=== PATIENT | female | born 1935 | race Caucasian/White ===

== ENCOUNTER 2016-06-01 13:18 | Emergency (ER) | payer MEDICARE ==
--- NOTE | 2016-06-01 14:01 | ER Document Report ---
ED Medical Screen (RME) - General Chief Complaint: Leg Swelling Stated Complaint: LEG PAIN TRAVEL OUTSIDE OF THE [place] IN LAST 30 DAYS: No - HPI Notes: 06/01/16 14:00 Bilateral lower extremity pitting edema worse than normal patient states has been evaluated for blood clots in the past no history of blood clots. Now has erythema bilateral legs no fevers no chills - Related Data Allergies/Adverse Reactions: No Known Allergies Allergy (Verified 06/01/16 13:44) Past Medical History - Past Medical History Cardiac Medical History: Reports: Hx Hypercholesterolemia, Hx Hypertension - on meds Denies: Hx Coronary Artery Disease, Hx Heart Attack Pulmonary Medical History: Reports: Hx Tuberculosis Denies: Hx Asthma, Hx Bronchitis, Hx COPD, Hx Pneumonia Neurological Medical History: Denies: Hx Cerebrovascular Accident, Hx Seizures Endocrine Medical History: Reports: Hx Hypothyroidism Renal/ Medical History: Denies: Hx Peritoneal Dialysis Malignancy Medical History: Reports: Hx Breast Cancer Musculoskeltal Medical History: Reports Hx Arthritis Psychiatric Medical History: Reports: Hx Anxiety, Hx Dementia - Suspected based on the visit today, she has not been officially diagnosed. Past Surgical History: Reports: Hx Mastectomy - left, Hx Orthopedic Surgery - left knee, L arm - Immunizations Immunizations up to date: Yes Hx Diphtheria, Pertussis, Tetanus Vaccination: Yes Review of Systems - Review of Systems Constitutional: Other - Peripheral edema Physical Exam - Vital signs Vitals: Temp Pulse Resp BP Pulse Ox 97.8 F 54 L 20 130/50 H 98 06/01/16 13:46 06/01/16 13:46 06/01/16 13:46 06/01/16 13:46 06/01/16 13:46 - General General appearance: Appears well In distress: None - Respiratory Respiratory status: No respiratory distress Chest status: Nontender Course - Vital Signs Vital signs: Temp Pulse Resp BP Pulse Ox 97.8 F 54 L 20 130/50 H 98 06/01/16 13:46 06/01/16 13:46 06/01/16 13:46 06/01/16 13:46 06/01/16 13:46
[2016-06-01 14:20] LABS: ABSOLUTE EOSINOPHILS # (AUTO) 0.1 10^3/uL (0.0-0.6); ABSOLUTE LYMPHOCYTES (AUTO) 1.9 10^3/uL (0.5-4.7); ABSOLUTE MONOCYTES (AUTO) 0.6 10^3/uL (0.1-1.4); ABSOLUTE NEUT (AUTO) 4.7 10^3/uL (1.7-8.2); BASOPHILS % (AUTO) 0.2 % (0-2); EOSINOPHILS % (AUTO) 1.5 % (0-6); HEMATOCRIT 34.5 % (36.0-47.0); HEMOGLOBIN 11.4 g/dL (12.0-15.5); HGB HCT DIFFERENCE -0.3; LYMPHOCYTES % (AUTO) 25.9 % (13-45); MEAN CORPUSCULAR HEMOGLOBIN 30.4 pg (27.0-33.4); MEAN CORPUSCULAR HGB CONC 33.2 g/dL (32.0-36.0); MEAN CORPUSCULAR VOLUME 92 fl (80-97); MONOCYTES % (AUTO) 8.1 % (3-13); RED BLOOD COUNT 3.75 10^6/uL (3.72-5.28); RED CELL DISTRIBUTION WIDTH 14.3 % (11.5-14.0); SEGMENTED NEUTROPHILS % (AUTO) 64.3 % (42-78); WHITE BLOOD COUNT 7.3 10^3/uL (4.0-10.5)
--- NOTE | 2016-06-01 14:30 | ER Document Report ---
ED General - General Chief Complaint: Leg Swelling Stated Complaint: LEG PAIN Time seen by provider: 14:28 Mode of Arrival: Ambulatory Information source: Patient Notes: This is an 81-year-old female with a history of hypertension, sleep edema, arthritis, hypothyroidism and restless leg syndrome. The patient presents to the emergency room with bilateral lower extremity edema for the past week. Patient denies any chest pain, shortness of breath, dyspnea on exertion. The patient does have a history of blunt trauma to the left knee and states that normally she does have a little asymmetry in the size of her lower extremities. TRAVEL OUTSIDE OF THE [place] IN LAST 30 DAYS: No - HPI Onset: Last week Onset/Duration: Gradual Quality of pain: No pain Severity: None Pain Level: Denies Associated symptoms: denies: Chills, Fever Exacerbated by: Denies Relieved by: Denies Similar symptoms previously: Yes Recently seen / treated by doctor: No - Related Data Allergies/Adverse Reactions: No Known Allergies Allergy (Verified 06/01/16 13:44) Past Medical History - General Information source: Patient - Social History Smoking Status: Never Smoker Cigarette use (# per day): No Chew tobacco use (# tins/day): No Frequency of alcohol use: None Drug Abuse: None Lives with: Alone Family History: Reviewed & Not Pertinent Patient has suicidal ideation: No Patient has homicidal ideation: No - Past Medical History Cardiac Medical History: Reports: Hx Hypercholesterolemia, Hx Hypertension - on meds Denies: Hx Coronary Artery Disease, Hx Heart Attack Pulmonary Medical History: Reports: Hx Tuberculosis Denies: Hx Asthma, Hx Bronchitis, Hx COPD, Hx Pneumonia Neurological Medical History: Denies: Hx Cerebrovascular Accident, Hx Seizures Endocrine Medical History: Reports: Hx Hypothyroidism Renal/ Medical History: Denies: Hx Peritoneal Dialysis Malignancy Medical History: Reports: Hx Breast Cancer Musculoskeltal Medical History: Reports Hx Arthritis Psychiatric Medical History: Reports: Hx Anxiety, Hx Dementia - Suspected based on the visit today, she has not been officially diagnosed. Past Surgical History: Reports: Hx Mastectomy - left, Hx Orthopedic Surgery - left knee, L arm - Immunizations Immunizations up to date: Yes Hx Diphtheria, Pertussis, Tetanus Vaccination: Yes Review of Systems - Review of Systems Notes: Review of systems: Constitutional: Denies fever, chills. EENT: Denies ear pain, sinus tenderness, throat pain, throat swelling. Cardiovascular: Positive for lower extremity edema. Denies chest pain, palpitations, dyspnea. Respiratory: Denies wheezing, cough, hemoptysis. Abdomen: Denies abdominal pain, nausea, vomiting, diarrhea. Denies BRBPR or melena. Genitourinary: Denies dysuria, pyuria, hematuria, flank pain. Musculoskeletal: Patient does have chronic low back pain. She does have arthritis and has a recent injection to the right knee joint. Neurologic: Denies headache, photophobia, neck stiffness, weakness. Denies loss of bowel or bladder function. Denies saddle anesthesia. Skin: Denies rash, lesions. Physical Exam - Vital signs Vitals: Temp Pulse Resp BP Pulse Ox 97.8 F 54 L 20 130/50 H 98 06/01/16 13:46 06/01/16 13:46 06/01/16 13:46 06/01/16 13:46 06/01/16 13:46 Notes: Physical exam: GENERAL: 81-year-old female, alert and oriented 3, no acute distress. HEAD: Atraumatic, normocephalic. EYES: Pupils equal round and reactive to light, extraocular movements intact, sclera anicteric, conjunctiva are normal. ENT: TMs normal, nares patent, oropharynx clear without exudates. Moist mucous membranes. NECK: Normal range of motion, supple without lymphadenopathy or JVD. LUNGS: Breath sounds clear to auscultation bilaterally and equal. No wheezes rales or rhonchi. HEART: Regular rate and rhythm without murmurs, rubs or gallops. ABDOMEN: Soft, normoactive bowel sounds. No tenderness to palpation. No guarding, no rebound. No masses appreciated. EXTREMITIES: Normal range of motion. She does have 2+ lower extremity edema bilaterally. 2+ dorsal pedal pulses. No clubbing or cyanosis. NEUROLOGICAL: Cranial nerves II through XII grossly intact. Normal speech, normal gait. PSYCH: Normal mood, normal affect. SKIN: Warm, Dry, normal turgor, no rashes or lesions noted. Course - Re-evaluation Re-evalutation: 06/01/16 17:17 I have a long discussion with the patient regarding her symptoms and have advised her to raise her feet up at night. I've advised her to use compression stockings, but she is hesitant to use these. I did discuss her heart rate which is a bit on the low side (51). Review of an old EKG showed that it was still in the 50s (57) but if anything I think she is a little on the dry side and the beta josh may be building in her system. I've advised her to hold the beta josh for 2 days but she is pretty adamant that she is not can hold this medicine. She is on this for a long time because of tachycardia in the past. I've given her a copy of today's labs and reports so that she can bring them to her primary care physician on Friday. Currently, she is very comfortable and in no distress at all. - Vital Signs Vital signs: Temp Pulse Resp BP Pulse Ox 97.8 F 88 18 123/55 L 97 06/01/16 16:38 06/01/16 16:38 06/01/16 16:38 06/01/16 16:38 06/01/16 16:38 - Laboratory Result Diagrams: 06/01/16 14:05 06/01/16 14:05 Laboratory results interpreted by me: 06/01/16 06/01/16 06/01/16 14:05 14:05 14:05 Hgb 11.4 L Hct 34.5 L RDW 14.3 H Sodium 146.4 H Potassium 3.4 L Carbon Dioxide 31 H BUN 28 H Est GFR (Non-Af Amer) 54 L NT-Pro-B Natriuret Pep 495 H - Diagnostic Test Radiology reviewed: Image reviewed, Reports reviewed - Lower extremity Dopplers show no DVT. Chest x-ray showed no infiltrates. - EKG Interpretation by Me Rate: Bradycardia - EKG shows sinus bradycardia with a ventricular rate of 51, no acute ST-T wave changes. Previous EKG September 26, 2014 shows a sinus bradycardia with a ventricular rate of 57. Discharge - Discharge Clinical Impression: Pedal edema Clinical Impression: (Ruled Out): no edema Condition: Stable Disposition: HOME, SELF-CARE Instructions: Edema, Peripheral ([facility]) Additional Instructions: Recommendations: A lower extremity Doppler exam was performed and showed no blood clot in the lower extremities. Your chest x-ray looked good. Continue current medicines. See the instruction sheet on peripheral edema. Note that your heart rate was on the low side (51) and that the medicine you are taking (Nadolol) we will slow the heart rate. This medicine boards out too much in your system, it and slow to much and you will becomes symptomatic. I do recommend you hold this medicine for 2 days. I would be seen by her primary care physician (Dr. Rico) on Friday. I would like you to bring a copy of today's test results with you when you go to that appointment. Return to the ER for any chest pain, shortness of breath or any concerns he getting worse. Referrals: HERMINIO BENAVIDES PA-C [Primary Care Provider] - Follow up as needed HARLEY RICO MD [ACTIVE STAFF] - Follow up as needed
[2016-06-01 14:37] LABS: ANION GAP 13 (5-19); BLOOD UREA NITROGEN 28 mg/dL (7-20); CALCIUM 9.4 mg/dL (8.4-10.2); CARBON DIOXIDE 31 mmol/L (22-30); CHLORIDE 102 mmol/L (98-107); CREATININE RESULT 0.99 mg/dL (0.52-1.25); GLUCOSE 102 mg/dL (75-110); POTASSIUM 3.4 mmol/L (3.6-5.0); SODIUM 146.4 mmol/L (137-145)
[2016-06-01] MEDS ORDERED: POTASSIUM CHLORIDE 20 MEQ/15 ML UDCUP PO ONE (15:11)
[2016-06-01 15:17] LABS: THYROID STIMULATING HORMONE 2.41 uIU/mL (0.47-4.68)
[2016-06-01 18:02] VITALS: BP 128/52
--- NOTE | 2016-06-01 20:46 | EKG REPORT ---
SEVERITY:- BORDERLINE ECG - SINUS RHYTHM BORDERLINE T ABNORMALITIES, ANT-LAT LEADS : Confirmed by: Jerel Marvin 01-Jun-2016 20:46:18
== END 2016-06-01 17:30 | disposition home or self-care (01) ==
LOC: ER 13:18
DX: R60.0 Localized edema (principal); M79.89 Other specified soft tissue disorders; M79.604 Pain in right leg; M79.605 Pain in left leg; I10 Essential (primary) hypertension; E03.9 Hypothyroidism, unspecified
CPT/HCPCS: 93005; 99284; 36415; 84439; 84443; 85025; 80048; 83880; 93970; 71020; 93010; A9270

== ENCOUNTER 2016-06-18 11:46 | Emergency (ER) | payer MEDICARE ==
--- NOTE | 2016-06-18 12:53 | ER Document Report ---
ED Medical Screen (RME) - General Chief Complaint: Productive Cough Stated Complaint: COUGH Mode of Arrival: Ambulatory Information source: Patient Notes: 81-year-old female no previous smoking history asthma history presents with complaints of shortness of breath wheezing over the past 3 weeks with productive white sputum Patient denies any fevers admits decreased appetite I have greeted and performed a rapid initial assessment of this patient. A comprehensive ED assessment and evaluation of the patient, analysis of test results and completion of the medical decision making process will be conducted by additional ED providers. PHYSICAL EXAMINATION: GENERAL: Extremely well-appearing for her age. HEAD: Atraumatic, normocephalic. EYES: Pupils equal round and reactive to light, extraocular movements intact, conjunctiva are normal. ENT: Nares patent, oropharynx clear without exudates. Moist mucous membranes. NECK: Normal range of motion, supple without lymphadenopathy LUNGS: Breath sounds clear to auscultation bilaterally and equal. No wheezes rales or rhonchi. Coughing HEART: Regular rate and rhythm without murmurs ABDOMEN: Soft, nontender, nondistended abdomen. No guarding, no rebound. No masses appreciated. Female : deferred Musculoskeletal: Normal range of motion, no pitting or edema. No cyanosis. NEUROLOGICAL: Cranial nerves grossly intact. Normal speech, normal gait. Normal sensory, motor exams PSYCH: Normal mood, normal affect. SKIN: Warm, Dry, normal turgor, no rashes or lesions noted. TRAVEL OUTSIDE OF THE [place] IN LAST 30 DAYS: No - Related Data Allergies/Adverse Reactions: No Known Allergies Allergy (Verified 06/18/16 12:38) Past Medical History - Past Medical History Cardiac Medical History: Reports: Hx Hypercholesterolemia, Hx Hypertension - on meds Denies: Hx Coronary Artery Disease, Hx Heart Attack Pulmonary Medical History: Reports: Hx Tuberculosis Denies: Hx Asthma, Hx Bronchitis, Hx COPD, Hx Pneumonia Neurological Medical History: Denies: Hx Cerebrovascular Accident, Hx Seizures Endocrine Medical History: Reports: Hx Hypothyroidism Renal/ Medical History: Denies: Hx Peritoneal Dialysis Malignancy Medical History: Reports: Hx Breast Cancer Musculoskeltal Medical History: Reports Hx Arthritis Psychiatric Medical History: Reports: Hx Anxiety, Hx Dementia - Suspected based on the visit today, she has not been officially diagnosed. Past Surgical History: Reports: Hx Mastectomy - left, Hx Orthopedic Surgery - left knee, L arm - Immunizations Immunizations up to date: Yes Hx Diphtheria, Pertussis, Tetanus Vaccination: Yes Physical Exam - Vital signs Vitals: Temp Pulse Resp BP Pulse Ox 97.3 F 50 L 20 167/61 H 96 06/18/16 11:51 06/18/16 11:51 06/18/16 11:51 06/18/16 11:51 06/18/16 11:51 Course - Vital Signs Vital signs: Temp Pulse Resp BP Pulse Ox 97.3 F 50 L 20 167/61 H 96 06/18/16 11:51 06/18/16 11:51 06/18/16 11:51 06/18/16 11:51 06/18/16 11:51
[2016-06-18 13:27] LABS: ABSOLUTE EOSINOPHILS # (AUTO) 0.1 10^3/uL (0.0-0.6); ABSOLUTE LYMPHOCYTES (AUTO) 1.7 10^3/uL (0.5-4.7); ABSOLUTE MONOCYTES (AUTO) 0.6 10^3/uL (0.1-1.4); ABSOLUTE NEUT (AUTO) 4.4 10^3/uL (1.7-8.2); BASOPHILS % (AUTO) 0.2 % (0-2); EOSINOPHILS % (AUTO) 1.6 % (0-6); HEMATOCRIT 31.3 % (36.0-47.0); HEMOGLOBIN 10.7 g/dL (12.0-15.5); HGB HCT DIFFERENCE 0.8; LYMPHOCYTES % (AUTO) 25.3 % (13-45); MEAN CORPUSCULAR HGB CONC 34.2 g/dL (32.0-36.0); MEAN CORPUSCULAR VOLUME 91 fl (80-97); RED BLOOD COUNT 3.46 10^6/uL (3.72-5.28); RED CELL DISTRIBUTION WIDTH 13.8 % (11.5-14.0); SEGMENTED NEUTROPHILS % (AUTO) 63.9 % (42-78); WHITE BLOOD COUNT 6.9 10^3/uL (4.0-10.5)
[2016-06-18 13:37] LABS: VENOUS BLOOD BASE EXCESS 4.6 mmol/L; VENOUS BLOOD HCO3 30.8 mmol/L (20-32); VENOUS BLOOD PCO2 53.2 mmHg (35-63); VENOUS BLOOD PH 7.38 (7.30-7.42)
[2016-06-18 13:39] LABS: PROTHROMBIN TIME 12.7 SEC (11.4-15.4)
--- NOTE | 2016-06-18 13:45 | ER Document Report ---
ED General - General Chief Complaint: Productive Cough Stated Complaint: COUGH Mode of Arrival: Ambulatory Information source: Patient Notes: Patient presents to the emergency department with complaints of a productive cough for the past 3 weeks. She reports she is spitting up some clear product. She also reports she's been wheezing. Denies history of asthma COPD. Denies other symptoms such as fever vomiting diarrhea. Denies cp. Patient reports she just hasn't felt good for a few weeks. Reports history of breast cancer, high blood pressure arthritis high cholesterol anxiety and chronic UTI. TRAVEL OUTSIDE OF THE [place] IN LAST 30 DAYS: No - HPI Onset: Other - 3 weeks Onset/Duration: Persistent Quality of pain: No pain Severity: None Pain Level: Denies Associated symptoms: Productive cough Exacerbated by: Denies Relieved by: Denies Similar symptoms previously: No Recently seen / treated by doctor: No - Related Data Allergies/Adverse Reactions: No Known Allergies Allergy (Verified 06/18/16 12:38) Past Medical History - General Information source: Patient - Social History Smoking Status: Never Smoker Cigarette use (# per day): No Frequency of alcohol use: None Drug Abuse: None Lives with: Alone Family History: Reviewed & Not Pertinent Patient has suicidal ideation: No Patient has homicidal ideation: No - Past Medical History Cardiac Medical History: Reports: Hx Hypercholesterolemia, Hx Hypertension - on meds Denies: Hx Coronary Artery Disease, Hx Heart Attack Pulmonary Medical History: Reports: Hx Tuberculosis Denies: Hx Asthma, Hx Bronchitis, Hx COPD, Hx Pneumonia Neurological Medical History: Denies: Hx Cerebrovascular Accident, Hx Seizures Endocrine Medical History: Reports: Hx Hypothyroidism Renal/ Medical History: Denies: Hx Peritoneal Dialysis Malignancy Medical History: Reports: Hx Breast Cancer Musculoskeltal Medical History: Reports Hx Arthritis Psychiatric Medical History: Reports: Hx Anxiety, Hx Dementia - Suspected based on the visit today, she has not been officially diagnosed. Past Surgical History: Reports: Hx Mastectomy - left, Hx Orthopedic Surgery - left knee, L arm - Immunizations Immunizations up to date: Yes Hx Diphtheria, Pertussis, Tetanus Vaccination: Yes Review of Systems - Review of Systems Notes: Review HPI for review of systems., All other systems negative Physical Exam - Vital signs Vitals: Temp Pulse Resp BP Pulse Ox 97.3 F 50 L 20 167/61 H 96 06/18/16 11:51 06/18/16 11:51 06/18/16 11:51 06/18/16 11:51 06/18/16 11:51 - Notes Notes: PHYSICAL EXAMINATION: GENERAL: Well-appearing and in no acute distress nontoxic looking HEAD: Atraumatic, normocephalic. EYES: Pupils equal round and reactive to light, extraocular movements intact, sclera anicteric, conjunctiva are normal. ENT: TM WNL, nares patent, oropharynx clear without exudates. Moist mucous membranes. NECK: Normal range of motion, supple without lymphadenopathy LUNGS: CTAB and equal. No wheezes rales or rhonchi. frequent cough noted, RR even/unlabored HEART: regular rate and rhythm ABDOMEN: Soft, no tenderness. No guarding, no rebound BACK: Kyphosis, denies back pain EXTREMITIES: Normal range of motion, no pitting edema. No cyanosis. NEUROLOGICAL: Cranial nerves grossly intact. Normal sensory/motor PSYCH: Normal mood, normal affect. SKIN: Warm, Dry, normal turgor, no rashes or lesions noted Course - Re-evaluation Re-evalutation: 06/18/16 16:05 Labs unremarkable chest x-ray negative UA positive nitrite Patient updated on UTI positive nitrite. Patient instructed on Septra. Patient reports she has chronic UTIs is not sure why. She was instructed on the importance of follow- up with her primary care provider. Patient reports her primary care provider has now switched to Dr. Pearson. I instructed her again to make sure she follows up in one week for recheck. She verbalized understanding. - Vital Signs Vital signs: Temp Pulse Resp BP Pulse Ox 97.3 F 50 L 18 160/65 H 98 06/18/16 11:51 06/18/16 11:51 06/18/16 16:01 06/18/16 16:01 06/18/16 16:01 - Laboratory Result Diagrams: 06/18/16 12:55 06/18/16 12:55 Laboratory results interpreted by me: 06/18/16 06/18/16 12:55 14:52 RBC 3.46 L Hgb 10.7 L Hct 31.3 L Urine Protein 30 H Urine Nitrite POSITIVE H Ur Leukocyte Esterase LARGE H - Diagnostic Test Radiology reviewed: Image reviewed, Reports reviewed - Diagnostic report text EXAM DESCRIPTION: CHEST PA/LAT COMPLETED DATE/TIME: 06/18/2016 1:24 pm REASON FOR STUDY: productive cough sob COMPARISON: 06/01/2016 EXAM PARAMETERS : NUMBER OF VIEWS: two views TECHNIQUE: Digital Frontal and Lateral radiographic views of the chest acquired. RADIATION DOSE: NA LIMITATIONS: none FINDINGS: LUNGS AND PLEURA: The lungs are mildly hyperexpanded. There are no infiltrates or effusions. MEDIASTINUM AND HILAR STRUCTURES: No masses or adenopathy suggested. HEART AND VASCULAR STRUCTURES: Cardiomegaly. No evidence of failure. BONES: No acute findings. HARDWARE: Surgical clips in the left axilla. OTHER: No other significant finding. TECHNICAL DOCUMENTATION : JOB ID: [id number] [employer]- All Rights Reserved RAD/CHEST PA/LAT IMPRESSION: Cardiomegaly with chronic lung changes and no evidence of CHF - EKG Interpretation by Me EKG shows normal: Sinus rhythm When compared to previous EKG there are: No significant change Discharge - Discharge Clinical Impression: Cough, Urinary tract infection Condition: Stable Disposition: HOME, SELF-CARE Instructions: Urinary Tract Infection ([facility]), Trimethoprim-Sulfa ([facility]) Additional Instructions: *You have been evaluated for a cough, UTI, Elevated blood pressure reading *Take medication as prescribed *Increase fluids *Monitor your temperature, take Tylenol as indicated *Follow up with a primary care provider within one week for a recheck *Return to ED for increasing fever, cough, worsening condition, changes, needs Monitor your blood pressure. Your blood pressure was elevated today. This may be because you were anxious, in pain or because you need medication. It is important to follow up with your primary care provider for full evaluation. Prescriptions: Sulfamethoxazole/Trimethoprim [Bactrim Ds Tablet] 1 each PO BID #20 tablet Forms: Elevated Blood Pressure Referrals: DOMINIC SILVERMAN MD [ACTIVE STAFF] - Follow up in 1 week
[2016-06-18 13:46] LABS: ALANINE AMINOTRANSFERASE 26 U/L (9-52); ALBUMIN 4.3 g/dL (3.5-5.0); ALKALINE PHOSPHATASE 112 U/L (38-126); ANION GAP 13 (5-19); ASPARTATE AMINO TRANSFERASE 18 U/L (14-36); BILIRUBIN,DIRECT 0.3 mg/dL (0.0-0.4); BILIRUBIN,TOTAL 0.7 mg/dL (0.2-1.3); BLOOD UREA NITROGEN 19 mg/dL (7-20); CALCIUM 9.7 mg/dL (8.4-10.2); CARBON DIOXIDE 29 mmol/L (22-30); CHLORIDE 102 mmol/L (98-107); GLUCOSE 101 mg/dL (75-110); POTASSIUM 3.9 mmol/L (3.6-5.0); SODIUM 144.2 mmol/L (137-145); TOTAL PROTEIN 7.5 g/dL (6.3-8.2)
[2016-06-18 15:19] LABS: APPEARANCE,URINE CLOUDY; BILIRUBIN,URINE NEGATIVE (NEGATIVE); GLUCOSE, URINE NEGATIVE (NEGATIVE); KETONES,URINE NEGATIVE (NEGATIVE); LEUKOCYTE ESTERASE,URINE LARGE (NEGATIVE); NITRITE,URINE POSITIVE (NEGATIVE); PROTEIN,URINE 30 mg/dL (NEGATIVE); URINE SPECIFIC GRAVITY 1.009; UROBILINOGEN,URINE NEGATIVE mg/dL (<2.0)
[2016-06-18 16:41] VITALS: BP 160/65
--- NOTE | 2016-06-18 22:20 | EKG REPORT ---
SEVERITY:- NORMAL ECG - SINUS RHYTHM : Confirmed by: Jreel Marvin 18-Jun-2016 22:20:43
== END 2016-06-18 16:53 | disposition home or self-care (01) ==
LOC: ER 11:46
DX: R05 Cough (principal); N39.0 Urinary tract infection, site not specified; R06.2 Wheezing; I10 Essential (primary) hypertension; Z85.3 Personal history of malignant neoplasm of breast; Z86.11 Personal history of tuberculosis
CPT/HCPCS: 36415; 71020; 80053; 81001; 82803; 83605; 85025; 85610; 87040; 87086; 87088; 87186; 93005; 93010; 99284

== ENCOUNTER 2016-10-26 14:25 | Emergency (ER) | payer MEDICARE ==
[2016-10-26 14:33] VITALS: BP 198/57
--- NOTE | 2016-10-26 15:33 | ER Document Report ---
ED General - General Chief Complaint: Medication Refill Stated Complaint: MEDICATION REFILL Time Seen by Provider: 10/26/16 14:48 Mode of Arrival: Ambulatory Information source: Patient Notes: Patient is an 81-year-old female who presents for medication refill on her Valium 10 mg. She states she has been seeing Dr. Lowe for the past 2-3 years he has been refilling her medications without problem. She states she went to the pharmacy to picker tender helper her refill and was told that this physician no longer has a DEJAN number that is active and they would be unable to give her another refill left on this medication. Patient states pharmacy has attempted to call this physician several times and she is attempted to call the physician several times as well with no response. Patient has no other complaints at this time. She denies any chest pain, shortness of breath, nausea, vomiting. She is just requesting this medication refill. She is requesting a list of local primary care physicians as well. TRAVEL OUTSIDE OF THE [place] IN LAST 30 DAYS: No - Related Data Allergies/Adverse Reactions: No Known Allergies Allergy (Verified 06/18/16 12:38) Past Medical History - General Information source: Patient - Social History Smoking Status: Unknown if Ever Smoked Chew tobacco use (# tins/day): No Frequency of alcohol use: None Drug Abuse: None Family History: Reviewed & Not Pertinent - Past Medical History Cardiac Medical History: Reports: Hx Hypercholesterolemia, Hx Hypertension - on meds Denies: Hx Coronary Artery Disease, Hx Heart Attack Pulmonary Medical History: Reports: Hx Tuberculosis Denies: Hx Asthma, Hx Bronchitis, Hx COPD, Hx Pneumonia Neurological Medical History: Denies: Hx Cerebrovascular Accident, Hx Seizures Endocrine Medical History: Reports: Hx Hypothyroidism Renal/ Medical History: Denies: Hx Peritoneal Dialysis Malignancy Medical History: Reports: Hx Breast Cancer Musculoskeltal Medical History: Reports Hx Arthritis Psychiatric Medical History: Reports: Hx Anxiety, Hx Dementia - Suspected based on the visit today, she has not been officially diagnosed. Past Surgical History: Reports: Hx Mastectomy - left, Hx Orthopedic Surgery - left knee, L arm - Immunizations Immunizations up to date: Yes Hx Diphtheria, Pertussis, Tetanus Vaccination: Yes Review of Systems - Review of Systems Constitutional: No symptoms reported EENT: No symptoms reported Cardiovascular: No symptoms reported Respiratory: No symptoms reported Gastrointestinal: No symptoms reported Genitourinary: No symptoms reported Female Genitourinary: No symptoms reported Musculoskeletal: No symptoms reported Skin: No symptoms reported Hematologic/Lymphatic: No symptoms reported Neurological/Psychological: No symptoms reported Physical Exam - Vital signs Vitals: Temp Pulse Resp BP Pulse Ox 97.8 F 64 18 198/57 H 96 10/26/16 14:28 10/26/16 14:28 10/26/16 14:28 10/26/16 14:10/26/16 14:28 Interpretation: Hypertensive - Notes Notes: PHYSICAL EXAM: CONSTITUTIONAL: Alert and oriented, well-appearing and in no acute distress. HENT: Normocephalic, atraumatic. Moist mucous membranes. EYES: Pupils equal round and reactive to light, EOM intact. Sclera anicteric, conjunctiva are normal. No entrapment. HEART: Regular rate and rhythm without murmurs. LUNGS: CTAB and equal. No wheezes, rales or rhonchi. EXTREMITIES: Normal range of motion, no pitting edema. No cyanosis. Cap Refill < 3 seconds. NEURO: Cranial nerves grossly intact. Normal sensory/motor exams. PSYCH: Normal mood, normal affect. SKIN: Warm and dry. Normal turgor. No rashes or lesions noted. Course - Re-evaluation Re-evalutation: 10/26/16 15:29 Patient seen and examined. She has no complaints, voices no other concerns. I also called [facility] pharmacy and spoke with pharmacist there. He reports the DEJAN number has been removed for the prescribing physician so they are unable to fill the refill on the prescription and have been unable to get in contact with prescriber. I discussed case with attending and he agrees - will provide one refill for Valium 10 mg and provide list of local primary care physicians. At this time, will discharge with return precautions and follow-up recommendations. Verbal discharge instructions given at the bedside and opportunity for questions given. Medication warnings reviewed. Patient is in agreement with this plan and has verbalized understanding of return precautions and the need for primary care follow-up in the next 24-72 hours. - Vital Signs Vital signs: Temp Pulse Resp BP Pulse Ox 97.8 F 64 18 198/57 H 96 10/26/16 14:28 10/26/16 14:28 10/26/16 14:28 10/26/16 14:28 10/26/16 14:28 Discharge - Discharge Clinical Impression: Medication refill, Anxiety Hypertension Qualifiers: Hypertension type: essential hypertension Qualified Code(s): I10 - Essential ( primary) hypertension Condition: Stable Disposition: HOME, SELF-CARE Instructions: Family Physicians / Practices Prescriptions: Diazepam [Valium] 10 mg PO BID PRN #60 tablet PRN Reason: Referrals: ELENA BENAVIDES MD [Primary Care Provider] - Follow up as needed
== END 2016-10-26 16:00 | disposition home or self-care (01) ==
LOC: ER 14:25
DX: F41.9 Anxiety disorder, unspecified (principal); I10 Essential (primary) hypertension
CPT/HCPCS: 99281

== ENCOUNTER 2017-11-13 10:59 | Emergency (ER) | payer MEDICARE ==
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
[2017-11-13 11:59] LABS: ABSOLUTE EOSINOPHILS # (AUTO) 0.1 10^3/uL (0.0-0.6); ABSOLUTE LYMPHOCYTES (AUTO) 1.9 10^3/uL (0.5-4.7); ABSOLUTE MONOCYTES (AUTO) 0.5 10^3/uL (0.1-1.4); ABSOLUTE NEUT (AUTO) 4.2 10^3/uL (1.7-8.2); BASOPHILS % (AUTO) 0.3 % (0-2); EOSINOPHILS % (AUTO) 1.6 % (0-6); HEMATOCRIT 33.9 % (36.0-47.0); HEMOGLOBIN 11.4 g/dL (12.0-15.5); MEAN CORPUSCULAR HEMOGLOBIN 30.6 pg (27.0-33.4); MEAN CORPUSCULAR HGB CONC 33.5 g/dL (32.0-36.0); MEAN CORPUSCULAR VOLUME 91 fl (80-97); MONOCYTES % (AUTO) 6.8 % (3-13); PLATELET COUNT 367 10^3/uL (150-450); RED BLOOD COUNT 3.71 10^6/uL (3.72-5.28); RED CELL DISTRIBUTION WIDTH 14.3 % (11.5-14.0); SEGMENTED NEUTROPHILS % (AUTO) 63.3 % (42-78); TOTAL CELLS COUNTED % (AUTO) 100 %; WHITE BLOOD COUNT 6.7 10^3/uL (4.0-10.5)
[2017-11-13 12:11] LABS: ALANINE AMINOTRANSFERASE 20 U/L (9-52); ALBUMIN 3.8 g/dL (3.5-5.0); ALKALINE PHOSPHATASE 120 U/L (38-126); ANION GAP 9 (5-19); ASPARTATE AMINO TRANSFERASE 26 U/L (14-36); BILIRUBIN,DIRECT 0.5 mg/dL (0.0-0.4); BILIRUBIN,TOTAL 0.6 mg/dL (0.2-1.3); BLOOD UREA NITROGEN 24 mg/dL (7-20); CALCIUM 9.4 mg/dL (8.4-10.2); CARBON DIOXIDE 30 mmol/L (22-30); CHLORIDE 102 mmol/L (98-107); GLUCOSE 89 mg/dL (75-110); POTASSIUM 4.5 mmol/L (3.6-5.0); SODIUM 140.6 mmol/L (137-145); TOTAL PROTEIN 7.2 g/dL (6.3-8.2)
--- NOTE | 2017-11-13 13:12 | ER Document Report ---
ED General - General Chief Complaint: Leg Pain Stated Complaint: LEG PAIN Time Seen by Provider: 11/13/17 11:29 TRAVEL OUTSIDE OF THE [place] IN LAST 30 DAYS: No - HPI Patient complains to provider of: Left leg wound Notes: Patient's of her left leg wound was evacuated from the [place] patient was seen in the ER and [place] placed on Keflex returning concern for continued infection. Denies any fever chills nausea vomiting diarrhea states compliance with the antibiotics. Patient does have history of peripheral vascular disease - Related Data Allergies/Adverse Reactions: No Known Allergies Allergy (Verified 11/13/17 11:01) Past Medical History - Social History Smoking Status: Unknown if Ever Smoked Family History: Reviewed & Not Pertinent Patient has suicidal ideation: No Patient has homicidal ideation: No - Past Medical History Cardiac Medical History: Reports: Hx Hypercholesterolemia, Hx Hypertension - on meds Denies: Hx Coronary Artery Disease, Hx Heart Attack Pulmonary Medical History: Reports: Hx Tuberculosis Denies: Hx Asthma, Hx Bronchitis, Hx COPD, Hx Pneumonia Neurological Medical History: Denies: Hx Cerebrovascular Accident, Hx Seizures Endocrine Medical History: Reports: Hx Hypothyroidism Renal/ Medical History: Denies: Hx Peritoneal Dialysis Malignancy Medical History: Reports: Hx Breast Cancer Musculoskeletal Medical History: Reports Hx Arthritis Psychiatric Medical History: Reports: Hx Anxiety, Hx Dementia - Suspected based on the visit today, she has not been officially diagnosed. Past Surgical History: Reports: Hx Mastectomy - left, Hx Orthopedic Surgery - left knee, L arm - Immunizations Immunizations up to date: Yes Hx Diphtheria, Pertussis, Tetanus Vaccination: Yes Review of Systems - Review of Systems Constitutional: No symptoms reported EENT: No symptoms reported Cardiovascular: No symptoms reported Respiratory: No symptoms reported Gastrointestinal: No symptoms reported Genitourinary: No symptoms reported Female Genitourinary: No symptoms reported Musculoskeletal: No symptoms reported Skin: No symptoms reported Hematologic/Lymphatic: No symptoms reported Neurological/Psychological: Other - Leg 1 Physical Exam - Vital signs Vitals: Temp Pulse Resp BP Pulse Ox 98.1 F 46 L 18 149/40 H 95 11/13/17 11:09 11/13/17 11:09 11/13/17 11:09 11/13/17 11:09 11/13/17 11:09 Interpretation: Normal - General General appearance: Appears well, Alert - HEENT Head: Normocephalic, Atraumatic Eyes: Normal Pupils: PERRL - Respiratory Respiratory status: No respiratory distress Chest status: Nontender Breath sounds: Normal Chest palpation: Normal - Cardiovascular Rhythm: Regular Heart sounds: Normal auscultation Murmur: No - Abdominal Inspection: Normal Distension: No distension Bowel sounds: Normal Tenderness: Nontender Organomegaly: No organomegaly - Back Back: Normal, Nontender - Extremities General upper extremity: Normal inspection, Nontender, Normal color, Normal ROM , Normal temperature General lower extremity: Nontender, Normal ROM, Normal temperature, Normal weight bearing, Other - Patient with a wound midshin 2 areas of necrotic tissue one area of necrotic tissues from a skin flap patient states was a blister that popped the skin was not removed. One area approximately the size 0.25 x 0.25 cm patient does have a small blister to the end of the foot pulses are intact distally. No: Normal inspection, Diandra's sign - Neurological Neuro grossly intact: Yes Cognition: Normal Orientation: AAOx4 Alder Coma Scale Eye Opening: Spontaneous Yessenia Coma Scale Verbal: Oriented Alder Coma Scale Motor: Obeys Commands Yessenia Coma Scale Total: 15 Speech: Normal Motor strength normal: LUE, RUE, LLE, RLE Sensory: Normal - Psychological Associated symptoms: Normal affect, Normal mood - Skin Skin Temperature: Warm Skin Moisture: Dry Skin Color: Normal Course - Re-evaluation Re-evalutation: 11/13/17 19:34 Recommend wet-to-dry dressing changes of the patient's leg wound continued antibiotics follow-up with wound care clinic or PCP for wound evaluation. Patient's family states understanding discharged home - Vital Signs Vital signs: Temp Pulse Resp BP Pulse Ox 97.9 F 50 L 18 151/49 H 97 11/13/17 13:23 11/13/17 13:23 11/13/17 11:09 11/13/17 13:23 11/13/17 13:23 - Laboratory Result Diagrams: 11/13/17 11:39 11/13/17 11:39 Laboratory results interpreted by me: 11/13/17 11/13/17 11:39 11:39 RBC 3.71 L Hgb 11.4 L Hct 33.9 L RDW 14.3 H BUN 24 H Est GFR (Non-Af Amer) 50 L Direct Bilirubin 0.5 H Discharge - Discharge Clinical Impression: Leg wound, left Qualifiers: Encounter type: initial encounter Qualified Code(s): S81.802A - Unspecified open wound, left lower leg, initial encounter Condition: Good Disposition: HOME, SELF-CARE Instructions: Wound Infection ([facility]) Additional Instructions: Your evaluation today shows a healing wound with some skin around the edges. I recommend performing wet-to-dry dressing changes twice a day for the next 5-7 days also recommend following up with the wound care clinic listed your primary care physician or return to the ER in approximately 5-7 days for a wound check. Continue antibiotics if you feel things are worsening before he can follow-up return to the ER symptoms worsen Referrals: ELENA BENAVIDES MD [ACTIVE STAFF] - Follow up as needed KEVIN EL MD [ACTIVE STAFF] - Follow up as needed (Call to make an appointment for the wound care clinic)
[2017-11-13 13:30] VITALS: BP 151/49
== END 2017-11-13 13:30 | disposition home or self-care (01) ==
LOC: ER 10:59
DX: S81.802A Unspecified open wound, left lower leg, initial encounter (principal); M79.605 Pain in left leg; X58.XXXA Exposure to other specified factors, initial encounter; I73.9 Peripheral vascular disease, unspecified; I10 Essential (primary) hypertension; Z79.899 Other long term (current) drug therapy
CPT/HCPCS: 36415; 80053; 85025; 99283

== ENCOUNTER 2018-10-04 13:37 | Emergency (ER) | payer MEDICARE ==
--- NOTE | 2018-10-04 15:48 | RADIOLOGY REPORT (SQ) ---
EXAM DESCRIPTION: CHEST SINGLE VIEW COMPLETED DATE/TIME: 10/04/2018 3:39 pm REASON FOR STUDY: weakness COMPARISON: 06/18/2016 EXAM PARAMETERS: NUMBER OF VIEWS: One view. TECHNIQUE: Single frontal radiographic view of the chest acquired. RADIATION DOSE: NA LIMITATIONS: None. FINDINGS: LUNGS AND PLEURA: No opacities, masses or pneumothorax. No pleural effusion. MEDIASTINUM AND HILAR STRUCTURES: No masses. Contour normal. HEART AND VASCULAR STRUCTURES: Heart normal in size. Normal vasculature. BONES: Left humerus hardware. HARDWARE: With left axillary clips. OTHER: No other significant finding. IMPRESSION: NO ACUTE RADIOGRAPHIC FINDING IN THE CHEST. TECHNICAL DOCUMENTATION: JOB ID: [id number] [employer]- All Rights Reserved Reading location - IP/workstation name: [email or web address]
[2018-10-04 16:07] LABS: ABSOLUTE EOSINOPHILS # (AUTO) 0.1 10^3/uL (0.0-0.6); ABSOLUTE LYMPHOCYTES (AUTO) 2.1 10^3/uL (0.5-4.7); ABSOLUTE MONOCYTES (AUTO) 0.6 10^3/uL (0.1-1.4); ABSOLUTE NEUT (AUTO) 4.5 10^3/uL (1.7-8.2); BASOPHILS % (AUTO) 0.1 % (0-2); EOSINOPHILS % (AUTO) 0.7 % (0-6); HEMATOCRIT 33.1 % (36.0-47.0); LYMPHOCYTES % (AUTO) 28.7 % (13-45); MEAN CORPUSCULAR HEMOGLOBIN 30.5 pg (27.0-33.4); MEAN CORPUSCULAR HGB CONC 33.3 g/dL (32.0-36.0); MEAN CORPUSCULAR VOLUME 92 fl (80-97); MONOCYTES % (AUTO) 7.9 % (3-13); PLATELET COUNT 271 10^3/uL (150-450); RED BLOOD COUNT 3.61 10^6/uL (3.72-5.28); SEGMENTED NEUTROPHILS % (AUTO) 62.6 % (42-78); TOTAL CELLS COUNTED % (AUTO) 100 %; WHITE BLOOD COUNT 7.2 10^3/uL (4.0-10.5)
[2018-10-04 16:08] LABS: INTERNATIONAL RATION (INR) 1.08
[2018-10-04 16:24] LABS: ALBUMIN 4.1 g/dL (3.5-5.0); ALKALINE PHOSPHATASE 82 U/L (38-126); ANION GAP 11 (5-19); ASPARTATE AMINO TRANSFERASE 24 U/L (14-36); BILIRUBIN,DIRECT 0.2 mg/dL (0.0-0.4); BILIRUBIN,TOTAL 0.4 mg/dL (0.2-1.3); BLOOD UREA NITROGEN 18 mg/dL (7-20); CALCIUM 9.3 mg/dL (8.4-10.2); CARBON DIOXIDE 27 mmol/L (22-30); CHLORIDE 100 mmol/L (98-107); GLUCOSE 99 mg/dL (75-110); POTASSIUM 4.1 mmol/L (3.6-5.0); TOTAL PROTEIN 7.3 g/dL (6.3-8.2)
--- NOTE | 2018-10-04 16:45 | ER Document Report ---
ED General - General Chief Complaint: Urinary Problem Stated Complaint: VAGINAL ISSUE Time Seen by Provider: 10/04/18 15:09 Primary Care Provider: RADHA STUART PA-C [Primary Care Provider] - Follow up as needed Notes: 83-year-old female brought in for new onset urinary incontinence. Patient has a fairly complicated medical history over the past week but the new concern today is urinary incontinence. Approximately a week ago she was diagnosed with urinary tract infection and a yeast infection as well as a vaginal infection at an urgent care and she was treated with Flagyl and Augmentin as well as topical clotrimazole and betamethasone. Several days ago she then had a burning sensation occur on her right buttock and right labia, her daughter and granddaughter who are both nurses looked at it and diagnosed her with shingles, they spoke with the physicians they work for her and were told that they could go ahead and give her valacyclovir 1 tablet 3 times a day from the supply that they already had at [facility] to treat her shingles. No physician has examined this area to date. Yesterday morning patient developed urinary incontinence and has not been able to control her urine since then. States that she has had a pressure in her lower abdomen since then and any pressure or any movement causes urinary incontinence. Denies any fecal incontinence, denies any fever, denies any vomiting or diarrhea. TRAVEL OUTSIDE OF THE [place] IN LAST 30 DAYS: No - Related Data Allergies/Adverse Reactions: No Known Allergies Allergy (Verified 11/13/17 11:01) Past Medical History - General Information source: Patient, Relative - Social History Smoking Status: Never Smoker Chew tobacco use (# tins/day): No Frequency of alcohol use: Rare Drug Abuse: None Family History: Reviewed & Not Pertinent Patient has suicidal ideation: No Patient has homicidal ideation: No - Past Medical History Cardiac Medical History: Reports: Hx Hypercholesterolemia, Hx Hypertension - on meds Denies: Hx Coronary Artery Disease, Hx Heart Attack Pulmonary Medical History: Reports: Hx Tuberculosis Denies: Hx Asthma, Hx Bronchitis, Hx COPD, Hx Pneumonia Neurological Medical History: Denies: Hx Cerebrovascular Accident, Hx Seizures Endocrine Medical History: Reports: Hx Hypothyroidism Renal/ Medical History: Denies: Hx Peritoneal Dialysis Malignancy Medical History: Reports: Hx Breast Cancer Musculoskeletal Medical History: Reports Hx Arthritis Psychiatric Medical History: Reports: Hx Anxiety, Hx Dementia - Suspected based on the visit today, she has not been officially diagnosed. Past Surgical History: Reports: Hx Mastectomy - left, Hx Orthopedic Surgery - left knee, L arm - Immunizations Immunizations up to date: Yes Hx Diphtheria, Pertussis, Tetanus Vaccination: Yes Review of Systems - Review of Systems Constitutional: No symptoms reported Gastrointestinal: See HPI, Abdomen distended - Patient complains of swelling to her lower abdomen. Genitourinary: See HPI Female Genitourinary: See HPI Skin: See HPI Physical Exam - Vital signs Vitals: Temp Pulse Resp BP Pulse Ox 97.5 F 51 L 18 188/66 H 99 10/04/18 13:50 10/04/18 13:50 10/04/18 13:50 10/04/18 13:50 10/04/18 13:50 Interpretation: Hypertensive - Notes Notes: GENERAL: Alert, interacts well. No acute distress. HEAD: Normocephalic, atraumatic EYES: Pupils equal, round and reactive to light, extraocular movements intact. ENT: Oral mucosa moist, tongue midline. NECK: Full range of motion, supple, trachea midline. LUNGS: Clear to auscultation bilaterally, no wheezes, rales or rhonchi, no respiratory distress. HEART: Regular rate and rhythm, no murmurs, gallops, rubs. ABDOMEN: Soft, nontender, nondistended, bowel sounds present in all 4 quadrants. EXTREMITIES: Moves all 4 extremities spontaneously, no edema, radial and dorsalis pedis pulses 2/4 bilaterally. No cyanosis. NEUROLOGICAL: Alert and oriented x3, normal speech. PSYCH: Normal mood, normal affect. SKIN: Warm, Dry, normal turgor, rash noted to the right external and internal labia and along the right buttock in a dermatomal distribution, no vesicles remain, all lesions are open and crusted, there is some erythema but there is no lymphangitic streaking. There is no sloughing of the skin. This does not cross midline. It is characteristic of later stages of shingles. There is active urinary incontinence noted during examination which was chaperoned by SOL Sahu. Minimal vaginal prolapse noted with bearing down. Course - Re-evaluation Re-evalutation: 10/04/18 21:16 CBC shows mild anemia with a hemoglobin 11.0, coags normal, venous blood gas unremarkable, CMP unremarkable, lactic acid negative, troponin normal, urinalysis shows small blood, positive nitrates, moderate leukocyte esterase, 2+ bacteria, many WBC clumps. Chest x-ray unremarkable. After Crabtree catheter was placed patient had almost a liter and a half of urine output and all of her abdominal pain and distention resolved. Repeat examination of the belly reveals a soft abdomen with absolutely no tenderness to palpation whatsoever remaining. Patient will be started on Bactrim, urine has been sent for culture. Patient has an examination consistent with shingles. Patient will be discharged to home. Has been offered Neurontin as well as lidocaine cream. Except both of these. Discharged home. 10/04/18 21:33 Patient's baseline hypertension will be treated with her blood pressure medications that she has at home has not yet taken today. - Vital Signs Vital signs: Temp Pulse Resp BP Pulse Ox 97.5 F 51 L 18 220/80 H 99 10/04/18 13:50 10/04/18 13:50 10/04/18 13:50 10/04/18 18:20 10/04/18 13:50 - Laboratory Result Diagrams: 10/04/18 15:35 10/04/18 15:35 Laboratory results interpreted by me: 10/04/18 10/04/18 10/04/18 15:35 15:35 16:24 RBC 3.61 L Hgb 11.0 L Hct 33.1 L Est GFR (Non-Af Amer) 58 L Urine Protein 30 H Urine Blood SMALL H Urine Nitrite POSITIVE H Ur Leukocyte Esterase MODERATE H - EKG Interpretation by Me Additional EKG results interpreted by me: 10/04/18 21:32 EKG shows sinus bradycardia at a rate of 55, normal axis, normal intervals, no ST segment elevations or depressions, nonspecific T wave abnormalities, inversio ns in lead III, aVF, flattening diffusely across the precordial leads per my interpretation. Discharge - Discharge Clinical Impression: Acute urinary retention Urinary tract infection Qualifiers: Urinary tract infection type: acute cystitis Hematuria presence: with hematuria Qualified Code(s): N30.01 - Acute cystitis with hematuria Shingles Qualifiers: Herpes zoster complications: without complications Qualified Code(s): B02.9 - Zoster without complications Condition: Stable Disposition: HOME, SELF-CARE Additional Instructions: Please have your Crabtree catheter removed in 1 week after you have finished your antibiotics. I have prescribed lidocaine cream that she can apply to the open area that will help to decrease some of the burning. If this does not work then please use the gabapentin 1 tablet up to 3 times a day. These return to the emergency department for any new or concerning symptoms. Prescriptions: Gabapentin [Neurontin 100 mg Capsule] 100 mg PO TIDP PRN #30 capsule PRN Reason: Lidocaine 15 gm TP QIDP PRN #1 cream..g. PRN Reason: Sulfamethoxazole/Trimethoprim [Bactrim Ds Tablet] 1 each PO BID #14 tablet Referrals: RADHA STUART PA-C [Primary Care Provider] - Follow up as needed
[2018-10-04 16:51] LABS: APPEARANCE,URINE SLIGHTLY-CLOUDY; BILIRUBIN,URINE NEGATIVE (NEGATIVE); COLOR,URINE YELLOW; GLUCOSE, URINE NEGATIVE (NEGATIVE); KETONES,URINE NEGATIVE (NEGATIVE); LEUKOCYTE ESTERASE,URINE MODERATE (NEGATIVE); NITRITE,URINE POSITIVE (NEGATIVE); PROTEIN,URINE 30 mg/dL (NEGATIVE); URINE SPECIFIC GRAVITY 1.009; UROBILINOGEN,URINE NEGATIVE mg/dL (<2.0)
--- NOTE | 2018-10-04 17:59 | EKG REPORT ---
SEVERITY:- ABNORMAL ECG - SINUS RHYTHM NONSPECIFIC T ABNORMALITIES, INFERIOR LEADS : Confirmed by: James Carney MD 04-Oct-2018 17:58:35
[2018-10-04 20:00] LABS: VENOUS BLOOD BASE EXCESS 2.3 mmol/L; VENOUS BLOOD HCO3 28.2 mmol/L (20-32); VENOUS BLOOD PCO2 49.4 mmHg (35-63); VENOUS BLOOD PH 7.37 (7.30-7.42)
[2018-10-04] MEDS ORDERED: CEFTRIAXONE INJ 1000 MG VIAL ONE (20:22)
[2018-10-04] MEDS ORDERED: CEFTRIAXONE 1 GM/D5W RTU 1 GM/50 ML RTUPB IV ONE (20:45)
[2018-10-04 22:28] VITALS: BP 225/69
== END 2018-10-04 22:29 | disposition home or self-care (01) ==
LOC: ER 13:37
DX: N30.01 Acute cystitis with hematuria (principal); B02.9 Zoster without complications; R33.9 Retention of urine, unspecified; R39.198 Other difficulties with micturition; R32 Unspecified urinary incontinence; I10 Essential (primary) hypertension; Z79.899 Other long term (current) drug therapy
CPT/HCPCS: 93005; 36415; 87040; 87086; 85025; 85610; 87088; 80053; 81001; 84484; 82803; 83605; 71045; 93010; J0696; 51701; 51702; 96365; 99284

== ENCOUNTER 2018-10-24 16:26 | Inpatient (IN) | payer MEDICARE ==
[2018-10-24] MEDS ORDERED: NORMAL SALINE 1000 ML 1,000 ML IV ONE (16:43)
--- NOTE | 2018-10-24 16:45 | ER Document Report ---
ED Medical Screen (RME) - General Chief Complaint: General Weakness Stated Complaint: WEAKNESS Time Seen by Provider: 10/24/18 16:33 Primary Care Provider: RADHA STUART PA-C [Primary Care Provider] - Follow up as needed Mode of Arrival: Wheelchair Information source: Relative Notes: Patient presents with generalized weakness. Patient has been being treated for UTI as well as urinary retention on outpatient basis. Patient presently has a leg bag in place. Family reports that patient has not been eating or drinking much and has had a very minimal urine output today. Patient is unable to stand unassisted at this time which is not her normal. hx: Hypertension, dyslipidemia, thyroid I have greeted and performed a rapid initial assessment of this patient. A comprehensive ED assessment and evaluation of the patient, analysis of test results and completion of the medical decision making process will be conducted by additional ED providers. TRAVEL OUTSIDE OF THE [place] IN LAST 30 DAYS: No - Related Data Allergies/Adverse Reactions: No Known Allergies Allergy (Verified 10/24/18 16:27) Past Medical History - Past Medical History Cardiac Medical History: Reports: Hx Hypercholesterolemia, Hx Hypertension - on meds Denies: Hx Coronary Artery Disease, Hx Heart Attack Pulmonary Medical History: Reports: Hx Tuberculosis Denies: Hx Asthma, Hx Bronchitis, Hx COPD, Hx Pneumonia Neurological Medical History: Denies: Hx Cerebrovascular Accident, Hx Seizures Endocrine Medical History: Reports: Hx Hypothyroidism Renal/ Medical History: Denies: Hx Peritoneal Dialysis Malignancy Medical History: Reports: Hx Breast Cancer Musculoskeltal Medical History: Reports Hx Arthritis Psychiatric Medical History: Reports: Hx Anxiety, Hx Dementia - Suspected based on the visit today, she has not been officially diagnosed. Past Surgical History: Reports: Hx Mastectomy - left, Hx Orthopedic Surgery - left knee, L arm - Immunizations Immunizations up to date: Yes Hx Diphtheria, Pertussis, Tetanus Vaccination: Yes Physical Exam - Vital signs Vitals: Temp Pulse Resp BP Pulse Ox 98.4 F 52 L 14 100/36 L 90 L 10/24/18 16:33 10/24/18 16:33 10/24/18 16:33 10/24/18 16:33 10/24/18 16:33 - General Notes: Dry mucous membranes, appears to feel bad. Generalized weakness Course - Vital Signs Vital signs: Temp Pulse Resp BP Pulse Ox 98.4 F 52 L 14 100/36 L 90 L 10/24/18 16:33 10/24/18 16:33 10/24/18 16:33 10/24/18 16:33 10/24/18 16:33 Doctor's Discharge - Discharge Referrals: RADHA STUART PA-C [Primary Care Provider] - Follow up as needed
[2018-10-24 17:29] LABS: ABSOLUTE EOSINOPHILS # (AUTO) 0.1 10^3/uL (0.0-0.6); ABSOLUTE LYMPHOCYTES (AUTO) 1.8 10^3/uL (0.5-4.7); ABSOLUTE MONOCYTES (AUTO) 0.6 10^3/uL (0.1-1.4); ABSOLUTE NEUT (AUTO) 6.2 10^3/uL (1.7-8.2); BASOPHILS % (AUTO) 0.3 % (0-2); EOSINOPHILS % (AUTO) 1.4 % (0-6); HEMATOCRIT 34.9 % (36.0-47.0); HEMOGLOBIN 11.4 g/dL (12.0-15.5); LYMPHOCYTES % (AUTO) 20.8 % (13-45); MEAN CORPUSCULAR HEMOGLOBIN 30.9 pg (27.0-33.4); MEAN CORPUSCULAR HGB CONC 32.6 g/dL (32.0-36.0); MEAN CORPUSCULAR VOLUME 95 fl (80-97); MONOCYTES % (AUTO) 7.1 % (3-13); PLATELET COUNT 203 10^3/uL (150-450); RED BLOOD COUNT 3.69 10^6/uL (3.72-5.28); SEGMENTED NEUTROPHILS % (AUTO) 70.4 % (42-78); TOTAL CELLS COUNTED % (AUTO) 100 %; WHITE BLOOD COUNT 8.7 10^3/uL (4.0-10.5)
[2018-10-24 17:31] LABS: INTERNATIONAL RATION (INR) 1.05; PROTHROMBIN TIME 13.7 SEC (11.4-15.4)
[2018-10-24 17:44] LABS: ALBUMIN 4.1 g/dL (3.5-5.0); ALKALINE PHOSPHATASE 84 U/L (38-126); ANION GAP 9 (5-19); ASPARTATE AMINO TRANSFERASE 39 U/L (14-36); BILIRUBIN,DIRECT 0.2 mg/dL (0.0-0.4); BILIRUBIN,TOTAL 0.4 mg/dL (0.2-1.3); BLOOD UREA NITROGEN 33 mg/dL (7-20); CALCIUM 9.2 mg/dL (8.4-10.2); CARBON DIOXIDE 25 mmol/L (22-30); CHLORIDE 104 mmol/L (98-107); GLUCOSE 126 mg/dL (75-110); POTASSIUM 5.5 mmol/L (3.6-5.0); TOTAL PROTEIN 7.5 g/dL (6.3-8.2)
--- NOTE | 2018-10-24 17:51 | RADIOLOGY REPORT (SQ) ---
EXAM DESCRIPTION: CHEST 2 VIEWS COMPLETED DATE/TIME: 10/24/2018 5:32 pm REASON FOR STUDY: weakness COMPARISON: 10/04/2018. EXAM PARAMETERS: NUMBER OF VIEWS: two views TECHNIQUE: Digital Frontal and Lateral radiographic views of the chest acquired. RADIATION DOSE: NA LIMITATIONS: none FINDINGS: LUNGS AND PLEURA: No opacities, masses or pneumothorax. No pleural effusion. MEDIASTINUM AND HILAR STRUCTURES: No masses or contour abnormalities. HEART AND VASCULAR STRUCTURES: Heart normal size. No evidence for failure. BONES: No acute findings. Degenerative changes in the spine. HARDWARE: Hardware in the left humerus. Surgical clips in the soft tissues on the left. OTHER: No other significant finding. IMPRESSION: NO ACUTE RADIOGRAPHIC FINDING IN THE CHEST. TECHNICAL DOCUMENTATION: JOB ID: [id number] [employer]- All Rights Reserved Reading location - IP/workstation name: [email or web address]
[2018-10-24 18:05] LABS: VENOUS BLOOD BASE EXCESS -1.7 mmol/L; VENOUS BLOOD PCO2 44.3 mmHg (35-63); VENOUS BLOOD PH 7.35 (7.30-7.42)
[2018-10-24 19:12] LABS: APPEARANCE,URINE TURBID; BILIRUBIN,URINE NEGATIVE (NEGATIVE); GLUCOSE, URINE NEGATIVE (NEGATIVE); KETONES,URINE NEGATIVE (NEGATIVE); LEUKOCYTE ESTERASE,URINE LARGE (NEGATIVE); NITRITE,URINE NEGATIVE (NEGATIVE); PROTEIN,URINE 100 mg/dL (NEGATIVE); URINE SPECIFIC GRAVITY 1.015; UROBILINOGEN,URINE NEGATIVE mg/dL (<2.0)
[2018-10-24 19:13] LABS: COLOR,URINE YELLOW
[2018-10-24] MEDS ORDERED: NICOTINE 7 MG/24 HR PATCH.TD24 TD ONE (19:16)
[2018-10-24] MEDS ORDERED: NICOTINE 7 MG/24 HR PATCH.TD24 ONE (19:45)
[2018-10-24] MEDS ORDERED: CEFTRIAXONE 1 GM/D5W RTU 1 GM/50 ML RTUPB IV ONE (20:12)
[2018-10-24] MEDS ORDERED: IPRATROPIUM/ALBUTEROL 0.5-2.5 MG/3 ML AMPUL NEB PRN (20:18)
[2018-10-24] MEDS ORDERED: ACETAMINOPHEN 325 MG TABLET PO PRN (20:18)
[2018-10-24] MEDS ORDERED: MAG HYDROX/AL HYDROX/SIMETH SUSP 30 ML UDCUP PO PRN (20:18)
[2018-10-24] MEDS ORDERED: MAGNESIUM HYDROXIDE SUSP 30 ML UDCUP PO PRN (20:18)
[2018-10-24] MEDS ORDERED: NORMAL SALINE 1000 ML 1,000 ML IV SCH (20:30)
[2018-10-24] MEDS: LACTULOSE SYRUP 20 GM/30 ML UDCUP PO ONE ×2 (20:58→21:57)
--- NOTE | 2018-10-24 20:59 | ER Document Report ---
ED General - General Chief Complaint: General Weakness Stated Complaint: WEAKNESS Time Seen by Provider: 10/24/18 16:33 Primary Care Provider: RADHA STUART PA-C [Primary Care Provider] - Follow up as needed Mode of Arrival: Wheelchair Notes: 83-year-old female presents emergency department complaining of progressively worsening weakness over the past month. Patient was seen almost 3 weeks ago next emergency department and diagnosed with shingles, urinary retention and urinary tract infection. Family took the catheter out approximately 1 week after was placed on a Friday and then from Friday until Friday she had almost no urinary output, they followed up with Dr. Downing on Friday the and he reinserted a catheter at that point and only obtained 1000 mL's of urine. Patient was also started on amoxicillin 250 mg twice a day for [address] Downing. Patient also followed up with her primary care provider BRANDEN Sandoval on the when the family reports that the patient was still somewhat weak, hypotensive and not feeling well. At that point they state that they were told they could improve return to the emergency department if they were concerned. When they returned home that day they felt like the patient was feeling a little bit better so they did not come to the emergency department but then she has become weak again and today she was too weak even to walk with her walker, family states that her knees are buckling underneath of her and she is increas ingly confused. They state that she has been losing weight, when she was seen on the she weighed 169 pounds, on the she weighed 151 pounds and today she weighs 148 pounds. They state that she is not really eating or drinking. They do states that her shingles has improved significantly and only has minimal skin breakdown the left with no surrounding erythema. They deny any fevers, sta damien she is always chilled. States that she is still having the burning pain from the shingles and they are treating it with Neurontin 100 mg twice a day. They are afraid to give her any more medication because she has been having increasing somnolence during the day. TRAVEL OUTSIDE OF THE [place] IN LAST 30 DAYS: No - Related Data Allergies/Adverse Reactions: No Known Allergies Allergy (Verified 10/24/18 16:27) Past Medical History - General Information source: Patient, Relative - Social History Smoking Status: Never Smoker Chew tobacco use (# tins/day): Yes Frequency of alcohol use: None Drug Abuse: None Family History: Reviewed & Not Pertinent Patient has suicidal ideation: No Patient has homicidal ideation: No - Past Medical History Cardiac Medical History: Reports: Hx Hypercholesterolemia, Hx Hypertension - on meds Denies: Hx Coronary Artery Disease, Hx Heart Attack Pulmonary Medical History: Reports: Hx Tuberculosis Denies: Hx Asthma, Hx Bronchitis, Hx COPD, Hx Pneumonia Neurological Medical History: Denies: Hx Cerebrovascular Accident, Hx Seizures Endocrine Medical History: Reports: Hx Hypothyroidism Renal/ Medical History: Denies: Hx Peritoneal Dialysis Malignancy Medical History: Reports: Hx Breast Cancer Musculoskeletal Medical History: Reports Hx Arthritis Psychiatric Medical History: Reports: Hx Anxiety, Hx Dementia - Suspected based on the visit today, she has not been officially diagnosed. Past Surgical History: Reports: Hx Mastectomy - left, Hx Orthopedic Surgery - left knee, L arm - Immunizations Immunizations up to date: Yes Hx Diphtheria, Pertussis, Tetanus Vaccination: Yes Review of Systems - Review of Systems Constitutional: See HPI, Malaise, Weakness, Weight loss EENT: No symptoms reported Cardiovascular: No symptoms reported Respiratory: Cough - Intermittent cough. Gastrointestinal: No symptoms reported Genitourinary: See HPI, Retention Skin: See HPI - Lesions from shingles healing well. -: Yes All other systems reviewed and negative Physical Exam - Vital signs Vitals: Temp Pulse Resp BP Pulse Ox 98.4 F 52 L 14 100/36 L 90 L 10/24/18 16:33 10/24/18 16:33 10/24/18 16:33 10/24/18 16:33 10/24/18 16:33 Interpretation: Hypotensive, Bradycardic - Notes Notes: GENERAL: Fatigued, appears ill. HEAD: Normocephalic, atraumatic EYES: Pupils equal, round and reactive to light, extraocular movements intact. ENT: Oral mucosa dry, lips are chapped, tongue midline. NECK: Full range of motion, supple, trachea midline. LUNGS: Clear to auscultation bilaterally, no wheezes, rales or rhonchi, no respiratory distress. HEART: Regular rate and rhythm, no murmurs, gallops, rubs. ABDOMEN: Soft, nontender, nondistended, bowel sounds present in all 4 quadrants. EXTREMITIES: Moves all 4 extremities spontaneously, no edema, radial and dorsalis pedis pulses 2/4 bilaterally. No cyanosis. NEUROLOGICAL: Alert and oriented x3, normal speech, no facial droop. PSYCH: Normal mood, normal affect. SKIN: Warm, Dry, tenting with skin pinch test, significantly improved shingles rash noted to the right buttock compared to when I saw her 3 weeks ago, there does remain an open lesion to the right sacrum without any surrounding erythema. This does not appear to be a decubitus ulcer, it appears to be remainder of rash from shingles. Course - Re-evaluation Re-evalutation: 10/24/18 21:07 CBC shows anemia with hemoglobin 11.4, coags normal, venous blood gas un remarkable, CMP shows acute renal failure with BUN of 33 and a creatinine of 2.13, potassium elevated at 5.5, otherwise unremarkable, urinalysis shows small blood and large leukocyte esterase. Chest x-ray unremarkable. EKG does not show any evidence of hyperkalemia. Patient has been treated with Rocephin, urine cultures and blood cultures been sent. Patient was discussed with Dr. Miranda who agreed to admit the patient to his service for acute renal failure. - Vital Signs Vital signs: Temp Pulse Resp BP Pulse Ox 98.4 F 52 L 14 100/36 L 99 10/24/18 16:33 10/24/18 16:33 10/24/18 18:30 10/24/18 16:33 10/24/18 18:30 - Laboratory Result Diagrams: 10/24/18 17:07 10/24/18 17:07 Laboratory results interpreted by me: 10/24/18 10/24/18 10/24/18 17:02 17:07 17:07 RBC 3.69 L Hgb 11.4 L Hct 34.9 L RDW 15.0 H Potassium 5.5 H BUN 33 H Creatinine 2.13 H Est GFR ( Amer) 27 L Est GFR (MDRD) Non-Af 22 L Glucose 126 H POC Glucose 126 H AST 39 H Urine Protein Urine Blood Ur Leukocyte Esterase 10/24/18 18:44 RBC Hgb Hct RDW Potassium BUN Creatinine Est GFR ( Amer) Est GFR (MDRD) Non-Af Glucose POC Glucose AST Urine Protein 100 H Urine Blood SMALL H Ur Leukocyte Esterase LARGE H - EKG Interpretation by Me Additional EKG results interpreted by me: 10/24/18 21:08 EKG shows sinus bradycardia rate 47, normal axis, normal intervals, no ST segment elevations or depressions, no T wave inversions per my interpretation. Discharge - Discharge Clinical Impression: Dehydration, Urinary retention, Chronic UTI, Hyperkalemia Acute renal failure Qualifiers: Acute renal failure type: unspecified Qualified Code(s): N17.9 - Acute kidney failure, unspecified Anemia Qualifiers: Anemia type: unspecified type Qualified Code(s): D64.9 - Anemia, unspecified Condition: Fair Disposition: ADMITTED INPATIENT Admitting Provider: Ruben (Hospitalist) Unit Admitted: Telemetry Referrals: RADHA STUART PA-C [Primary Care Provider] - Follow up as needed
--- NOTE | 2018-10-24 21:08 | EKG REPORT ---
SEVERITY:- OTHERWISE NORMAL ECG - SINUS BRADYCARDIA : Confirmed by: James Carney MD 24-Oct-2018 21:07:38
[2018-10-24] MEDS ORDERED: NORMAL SALINE 1000 ML 1,000 ML IV PRN (21:13)
[2018-10-24] MEDS ORDERED: HYDROCODONE/ACETAMINOPHEN 7.5-325 MG TABLET PO PRN (21:52)
[2018-10-24] MEDS ORDERED: GABAPENTIN 100 MG CAPSULE PO PRN (21:52)
[2018-10-24] MEDS ORDERED: HYDRALAZINE HCL INJ/PF 20 MG/1 ML SDV IV ONE (21:52)
[2018-10-24] MEDS: HEPARIN SOD (PORCINE) 5,000 UNIT/ML 1 ML VIAL SUBCUT SCH (21:58)
[2018-10-24] MEDS ORDERED: DIAZEPAM 5 MG TABLET PO PRN (22:00)
[2018-10-24] MEDS: NADOLOL 40 MG TABLET PO SCH (23:48)
[2018-10-24] MEDS: ATORVASTATIN CALCIUM 10 MG TABLET PO SCH (23:51)
[2018-10-24] MEDS: TRAZODONE HCL 50 MG TABLET PO SCH (23:56)
[2018-10-25 05:14] LABS: ABSOLUTE EOSINOPHILS # (AUTO) 0.1 10^3/uL (0.0-0.6); ABSOLUTE MONOCYTES (AUTO) 0.5 10^3/uL (0.1-1.4); ABSOLUTE NEUT (AUTO) 2.7 10^3/uL (1.7-8.2); BASOPHILS % (AUTO) 0.1 % (0-2); EOSINOPHILS % (AUTO) 1.7 % (0-6); HEMATOCRIT 27.2 % (36.0-47.0); LYMPHOCYTES % (AUTO) 37.9 % (13-45); MEAN CORPUSCULAR HEMOGLOBIN 31.2 pg (27.0-33.4); MEAN CORPUSCULAR HGB CONC 33.3 g/dL (32.0-36.0); MEAN CORPUSCULAR VOLUME 94 fl (80-97); MONOCYTES % (AUTO) 9.8 % (3-13); PLATELET COUNT 136 10^3/uL (150-450); RED BLOOD COUNT 2.91 10^6/uL (3.72-5.28); RED CELL DISTRIBUTION WIDTH 14.4 % (11.5-14.0); SEGMENTED NEUTROPHILS % (AUTO) 50.5 % (42-78); TOTAL CELLS COUNTED % (AUTO) 100 %; WHITE BLOOD COUNT 5.3 10^3/uL (4.0-10.5)
[2018-10-25 05:16] LABS: HEMOGLOBIN 9.1 g/dL (12.0-15.5)
[2018-10-25 05:21] LABS: ANION GAP 7 (5-19); BLOOD UREA NITROGEN 26 mg/dL (7-20); CALCIUM 8.3 mg/dL (8.4-10.2); CARBON DIOXIDE 22 mmol/L (22-30); CHLORIDE 111 mmol/L (98-107); GLUCOSE 97 mg/dL (75-110)
[2018-10-25 05:27] LABS: POTASSIUM 4.3 mmol/L (3.6-5.0)
--- NOTE | 2018-10-25 06:00 | PDOC H&P ---
History of Present Illness Admission Date/PCP: 10/24/18 20:18 RADHA STUART PA-C Patient complains of: Confusion History of Present Illness: TANNER STRINGER is a 83 year old female whose history is obtained by the record as she is a poor historian. She presents with urinary tract infection and urinary retention, treatment with amoxicillin twice daily 10 days ago. Follow-up with primary care she is noted to be confused and weak prompting evaluation in the emergency room. She is found to have acute renal failure and 19 pound weight loss with poor appetite. Patient herself denies complaints she is requesting Valium. Providing incorrect dose and frequency of outpatient benzodiazepine. Past Medical History Cardiac Medical History: Reports: Hyperlipidema, Hypertension - on meds Denies: Coronary Artery Disease, Myocardial Infarction Pulmonary Medical History: Reports: Tuberculosis Denies: Asthma, Bronchitis, Chronic Obstructive Pulmonary Disease (COPD), Pneumonia Neurological Medical History: Denies: Seizures Endocrine Medical History: Reports: Hypothyroidism Malignancy Medical History: Reports: Breast Cancer Musculoskeltal Medical History: Reports: Arthritis Psychiatric Medical History: Reports: Dementia - Suspected based on the visit today, she has not been officially diagnosed. Hematology: Reports: Anemia - hx of Past Surgical History Past Surgical History: Reports: Mastectomy - left, Orthopedic Surgery - left knee, L arm Social History Information Source: Patient, Emergency Med Personnel, [facility] Records Lives with: Family Smoking Status: Never Smoker Frequency of Alcohol Use: None Hx Recreational Drug Use: No Hx Prescription Drug Abuse: No - Advance Directive Resuscitation Status: Full Code Family History Family History: Hypertension Parental Family History Reviewed: No Children Family History Reviewed: No Sibling(s) Family History Reviewed.: No - Unobtainable Medication/Allergy Home Medications: Atorvastatin Calcium [Lipitor 10 mg Tablet] 10 mg PO QAM 10/24/18 Diazepam 10 mg PO BID PRN 10/24/18 Gabapentin [Neurontin 100 mg Capsule] 100 mg PO TID PRN 10/24/18 Hydrochlorothiazide [Hydrodiuril 12.5 mg Tablet] 12.5 mg PO QAM 10/24/18 Hydrocodone/Acetaminophen [[place] 7.5-325 mg Tablet] 1 tab PO Q6H PRN 10/24/18 Levothyroxine Sodium 50 mcg PO QAM 10/24/18 Lisinopril [Prinivil 10 mg Tablet] 10 mg PO QAM 10/24/18 Nadolol 20 mg PO BID 10/24/18 Trazodone HCl 100 mg PO QHS 10/24/18 Allergies/Adverse Reactions: No Known Allergies Allergy (Verified 10/24/18 16:27) Review of Systems ROS unobtainable: Due to mental status Physical Exam Vital Signs: Temp Pulse Resp BP Pulse Ox 98.2 F 66 18 146/69 H 100 10/24/18 23:11 10/24/18 23:11 10/24/18 23:11 10/24/18 23:11 10/24/18 23:11 Intake & Output 10/23/18 10/24/18 10/25/18 11:59 11:59 11:59 Intake Total 1150 Output Total 860 Balance 290 Weight 70.3 kg General appearance: PRESENT: disheveled, mild distress, well-developed, well-nourished. ABSENT: cooperative Head exam: PRESENT: atraumatic, normocephalic Eye exam: PRESENT: conjunctiva pink, EOMI, PERRLA. ABSENT: scleral icterus Ear exam: PRESENT: normal external ear exam Mouth exam: PRESENT: dry mucosa, tongue midline. ABSENT: laceration, moist Neck exam: ABSENT: carotid bruit, JVD, lymphadenopathy, thyromegaly Respiratory exam: PRESENT: clear to auscultation paula. ABSENT: rales, rhonchi, wheezes Cardiovascular exam: PRESENT: RRR. ABSENT: diastolic murmur, rubs, systolic murmur Pulses: PRESENT: normal dorsalis pedis pul Vascular exam: PRESENT: normal capillary refill GI/Abdominal exam: PRESENT: normal bowel sounds, soft. ABSENT: distended, guarding, mass, organolmegaly, rebound, tenderness Rectal exam: PRESENT: deferred Extremities exam: PRESENT: full ROM. ABSENT: calf tenderness, clubbing, pedal edema Neurological exam: PRESENT: alert, altered, awake, oriented to person, CN II-XII grossly intact Psychiatric exam: PRESENT: normal mood, unusual affect. ABSENT: homicidal ideation, suicidal ideation Skin exam: PRESENT: dry, intact, warm. ABSENT: cyanosis, rash Results Laboratory Results: 10/25/18 04:09 10/25/18 04:09 10/24/18 10/24/18 10/24/18 17:07 17:07 17:07 WBC 8.7 RBC 3.69 L Hgb 11.4 L Hct 34.9 L MCV 95 MCH 30.9 MCHC 32.6 RDW 15.0 H Plt Count 203 Seg Neutrophils % 70.4 VBG pH VBG pCO2 VBG HCO3 VBG Base Excess Sodium 137.9 Potassium 5.5 H Chloride 104 Carbon Dioxide 25 Anion Gap 9 BUN 33 H Creatinine 2.13 H Est GFR ( Amer) 27 L Glucose 126 H Lactic Acid 1.4 Calcium 9.2 Total Bilirubin 0.4 AST 39 H Alkaline Phosphatase 84 Total Protein 7.5 Albumin 4.1 TSH Urine Color Urine Appearance Urine pH Ur Specific [place] Urine Protein Urine Glucose (UA) Urine Ketones Urine Blood Urine Nitrite Ur Leukocyte Esterase Urine WBC (Auto) Urine RBC (Auto) 10/24/18 10/24/18 10/24/18 17:07 17:51 18:44 WBC RBC Hgb Hct MCV MCH MCHC RDW Plt Count Seg Neutrophils % VBG pH 7.35 VBG pCO2 44.3 VBG HCO3 24.0 VBG Base Excess -1.7 Sodium Potassium Chloride Carbon Dioxide Anion Gap BUN Creatinine Est GFR ( Amer) Glucose Lactic Acid Calcium Total Bilirubin AST Alkaline Phosphatase Total Protein Albumin TSH 2.21 Urine Color YELLOW Urine Appearance TURBID Urine pH 5.0 Ur Specific [place] 1.015 Urine Protein 100 H Urine Glucose (UA) NEGATIVE Urine Ketones NEGATIVE Urine Blood SMALL H Urine Nitrite NEGATIVE Ur Leukocyte Esterase LARGE H Urine WBC (Auto) >182 Urine RBC (Auto) 51 10/25/18 10/25/18 04:09 04:09 WBC 5.3 RBC 2.91 L Hgb 9.1 L D Hct 27.2 L MCV 94 MCH 31.2 MCHC 33.3 RDW 14.4 H Plt Count 136 L Seg Neutrophils % 50.5 VBG pH VBG pCO2 VBG HCO3 VBG Base Excess Sodium 139.8 Potassium 4.3 D Chloride 111 H Carbon Dioxide 22 Anion Gap 7 BUN 26 H Creatinine 1.19 Est GFR ( Amer) 52 L Glucose 97 Lactic Acid Calcium 8.3 L Total Bilirubin AST Alkaline Phosphatase Total Protein Albumin TSH Urine Color Urine Appearance Urine pH Ur Specific [place] Urine Protein Urine Glucose (UA) Urine Ketones Urine Blood Urine Nitrite Ur Leukocyte Esterase Urine WBC (Auto) Urine RBC (Auto) Impressions: Chest X-Ray 10/24/18 16:42 IMPRESSION: NO ACUTE RADIOGRAPHIC FINDING IN THE CHEST. Assessment and Plan - Diagnosis (1) Acute renal failure Qualifiers: Acute renal failure type: unspecified Qualified Code(s): N17.9 - Acute kidney failure, unspecified Is this a current diagnosis for this admission?: Yes Plan: Likely secondary to poor p.o. intake, complicated by encephalopathy, IV fluid challenge, avoid nephrotoxic meds and doses follow-up chemistry and UA (2) Encephalopathy Is this a current diagnosis for this admission?: Yes Plan: Likely secondary to excessive benzodiazepine, limit for sedation but anticipate withdrawal symptoms. Clarify outpatient medication reconciliation. (3) Anemia Qualifiers: Anemia type: unspecified type Qualified Code(s): D64.9 - Anemia, unspecified Is this a current diagnosis for this admission?: Yes Plan: Chronic, follow-up iron studies.
[2018-10-25] MEDS: HEPARIN SOD (PORCINE) 5,000 UNIT/ML 1 ML VIAL SUBCUT SCH ×3 (06:06→21:24)
[2018-10-25 06:08] LABS: RETICULOCYTE COUNT (AUTO) 2.74 % (0.66-2.85)
[2018-10-25 06:19] LABS: IRON(TIBC) 26.2 ug/dL (37-170)
[2018-10-25 07:26] LABS: FOLATE 2.89 ng/mL (>2.76)
[2018-10-25] MEDS: DOCUSATE SODIUM 100 MG CAPSULE PO SCH ×2 (11:58→17:10)
[2018-10-25] MEDS: HYDROCHLOROTHIAZIDE 12.5 MG TABLET PO SCH (11:58)
[2018-10-25] MEDS: NADOLOL 40 MG TABLET PO SCH ×2 (11:58→21:23)
--- NOTE | 2018-10-25 14:16 | PDOC PROGRESS REPORT ---
Subjective Progress Note for:: 10/25/18 Subjective:: No adverse events overnight. No new complaints. Vital signs been stable. Is been a little bit drowsy but awakens to verbal command and is pleasant. Reason For Visit: AMS UTI ARF HYPERKAL Physical Exam Vital Signs: Temp Pulse Resp BP Pulse Ox 97.9 F 54 L 14 169/45 H 100 10/25/18 13:34 10/25/18 13:34 10/25/18 09:30 10/25/18 13:34 10/25/18 13:34 Intake & Output 10/24/18 10/25/18 10/26/18 06:59 06:59 06:59 Intake Total 1150 Output Total 860 Balance 290 Weight 70.3 kg General appearance: PRESENT: no acute distress, cooperative, disheveled Respiratory exam: PRESENT: clear to auscultation paula, symmetrical, unlabored. ABSENT: accessory muscle use, chest wall tenderness, crackles, prolonged expiratory phas, rhonchi, tachypnea, wheezes Cardiovascular exam: PRESENT: RRR, +S1, +S2 Pulses: PRESENT: normal carotid pulses Vascular exam: PRESENT: normal capillary refill GI/Abdominal exam: PRESENT: normal bowel sounds, soft. ABSENT: distended, guarding, rebound, tenderness Extremities exam: ABSENT: clubbing, pedal edema Musculoskeletal exam: PRESENT: normal inspection. ABSENT: deformity Neurological exam: PRESENT: awake, oriented to person, oriented to place Psychiatric exam: PRESENT: appropriate affect, normal mood Skin exam: PRESENT: dry, warm Results Laboratory Results: 10/25/18 04:09 10/25/18 04:09 10/24/18 10/24/18 10/24/18 17:07 17:07 17:07 WBC 8.7 RBC 3.69 L Hgb 11.4 L Hct 34.9 L MCV 95 MCH 30.9 MCHC 32.6 RDW 15.0 H Plt Count 203 Seg Neutrophils % 70.4 Retic Count (auto) VBG pH VBG pCO2 VBG HCO3 VBG Base Excess Sodium 137.9 Potassium 5.5 H Chloride 104 Carbon Dioxide 25 Anion Gap 9 BUN 33 H Creatinine 2.13 H Est GFR ( Amer) 27 L Glucose 126 H Lactic Acid 1.4 Calcium 9.2 Iron TIBC % Saturation Ferritin Total Bilirubin 0.4 AST 39 H Alkaline Phosphatase 84 Total Protein 7.5 Albumin 4.1 Vitamin B12 Folate TSH Urine Color Urine Appearance Urine pH Ur Specific [place] Urine Protein Urine Glucose (UA) Urine Ketones Urine Blood Urine Nitrite Ur Leukocyte Esterase Urine WBC (Auto) Urine RBC (Auto) 10/24/18 10/24/18 10/24/18 17:07 17:51 18:44 WBC RBC Hgb Hct MCV MCH MCHC RDW Plt Count Seg Neutrophils % Retic Count (auto) VBG pH 7.35 VBG pCO2 44.3 VBG HCO3 24.0 VBG Base Excess -1.7 Sodium Potassium Chloride Carbon Dioxide Anion Gap BUN Creatinine Est GFR ( Amer) Glucose Lactic Acid Calcium Iron TIBC % Saturation Ferritin Total Bilirubin AST Alkaline Phosphatase Total Protein Albumin Vitamin B12 Folate TSH 2.21 Urine Color YELLOW Urine Appearance TURBID Urine pH 5.0 Ur Specific [place] 1.015 Urine Protein 100 H Urine Glucose (UA) NEGATIVE Urine Ketones NEGATIVE Urine Blood SMALL H Urine Nitrite NEGATIVE Ur Leukocyte Esterase LARGE H Urine WBC (Auto) >182 Urine RBC (Auto) 51 10/25/18 10/25/18 10/25/18 04:09 04:09 04:09 WBC 5.3 RBC 2.91 L Hgb 9.1 L D Hct 27.2 L MCV 94 MCH 31.2 MCHC 33.3 RDW 14.4 H Plt Count 136 L Seg Neutrophils % 50.5 Retic Count (auto) 2.74 VBG pH VBG pCO2 VBG HCO3 VBG Base Excess Sodium 139.8 Potassium 4.3 D Chloride 111 H Carbon Dioxide 22 Anion Gap 7 BUN 26 H Creatinine 1.19 Est GFR ( Amer) 52 L Glucose 97 Lactic Acid Calcium 8.3 L Iron TIBC % Saturation Ferritin Total Bilirubin AST Alkaline Phosphatase Total Protein Albumin Vitamin B12 Folate TSH Urine Color Urine Appearance Urine pH Ur Specific [place] Urine Protein Urine Glucose (UA) Urine Ketones Urine Blood Urine Nitrite Ur Leukocyte Esterase Urine WBC (Auto) Urine RBC (Auto) 10/25/18 04:09 WBC RBC Hgb Hct MCV MCH MCHC RDW Plt Count Seg Neutrophils % Retic Count (auto) VBG pH VBG pCO2 VBG HCO3 VBG Base Excess Sodium Potassium Chloride Carbon Dioxide Anion Gap BUN Creatinine Est GFR ( Amer) Glucose Lactic Acid Calcium Iron 26.2 L TIBC 232 L % Saturation 11 Ferritin 171.00 Total Bilirubin AST Alkaline Phosphatase Total Protein Albumin Vitamin B12 246.0 Folate 2.89 TSH Urine Color Urine Appearance Urine pH Ur Specific [place] Urine Protein Urine Glucose (UA) Urine Ketones Urine Blood Urine Nitrite Ur Leukocyte Esterase Urine WBC (Auto) Urine RBC (Auto) Impressions: Chest X-Ray 10/24/18 16:42 IMPRESSION: NO ACUTE RADIOGRAPHIC FINDING IN THE CHEST. Assessment and Plan - Diagnosis (1) Acute renal failure Qualifiers: Acute renal failure type: unspecified Qualified Code(s): N17.9 - Acute kidney failure, unspecified Is this a current diagnosis for this admission?: Yes Plan: Essentially resolved with IV fluids creatinine now essentially normal (2) Chronic UTI Is this a current diagnosis for this admission?: Yes Plan: We will get her on some empiric antibiotics with a culture pending (3) Dehydration Is this a current diagnosis for this admission?: Yes Plan: Resolved with IV fluids, will monitor her oral intake (4) Encephalopathy Is this a current diagnosis for this admission?: Yes Plan: Not sure what her baseline mental status is, but she was very pleasant today (5) Hyperkalemia Is this a current diagnosis for this admission?: Yes Plan: Resolved - Time Time Spent with patient: 15-24 minutes
[2018-10-25] MEDS: ATORVASTATIN CALCIUM 10 MG TABLET PO SCH (21:23)
[2018-10-25] MEDS: TRAZODONE HCL 50 MG TABLET PO SCH (21:24)
[2018-10-25] MEDS ORDERED: CEFTRIAXONE 1 GM/D5W RTU 1 GM/50 ML RTUPB IV ONE (23:00)
[2018-10-26] MEDS: HEPARIN SOD (PORCINE) 5,000 UNIT/ML 1 ML VIAL SUBCUT SCH (05:01)
[2018-10-26] MEDS: HYDROCHLOROTHIAZIDE 12.5 MG TABLET PO SCH (08:24)
[2018-10-26] MEDS: DOCUSATE SODIUM 100 MG CAPSULE PO SCH (10:47)
[2018-10-26] MEDS: NADOLOL 40 MG TABLET PO SCH (11:02)
[2018-10-26 15:22] VITALS: BP 127/58
--- NOTE | 2018-10-26 16:15 | PDOC DISCHARGE SUMMARY ---
General - Admit/Disc Date/PCP Admission Date/Primary Care Provider: 10/24/18 20:18 RADHA STUART PA-C Discharge Date: 10/26/18 - Discharge Diagnosis (1) Acute renal failure Is this a current diagnosis for this admission?: Yes Summary: Resolved with IV fluids (2) Chronic UTI Is this a current diagnosis for this admission?: Yes Summary: She been treated with one for some time. She grew out a Klebsiella that was sensitive to Keflex and so we put her on that for a course of treatment. (3) Dehydration Is this a current diagnosis for this admission?: Yes Summary: Resolved with IV fluids. (4) Encephalopathy Is this a current diagnosis for this admission?: Yes Summary: Resolved with IV fluids antibiotics and improvement of her underlying condition (5) Hyperkalemia Is this a current diagnosis for this admission?: Yes Summary: Resolved with IV fluids - Additional Information Resuscitation Status: Full Code Discharge Diet: Cardiac Discharge Activity: Balance Activity w/Rest, Supervised Activity Prescriptions: Cephalexin Monohydrate [Keflex 500 mg Capsule] 500 mg PO QID #28 capsule Home Medications: Atorvastatin Calcium [Lipitor 10 mg Tablet] 10 mg PO QPM 10/24/18 Diazepam 10 mg PO BID PRN 10/24/18 Gabapentin [Neurontin 100 mg Capsule] 100 mg PO TID 10/24/18 Hydrochlorothiazide [Hydrodiuril 12.5 mg Tablet] 12.5 mg PO QAM 10/24/18 Hydrocodone/Acetaminophen [[place] 7.5-325 mg Tablet] 1 tab PO Q6HP PRN 10/24/18 Levothyroxine Sodium 50 mcg PO Q6AM 10/24/18 Lisinopril [Prinivil 10 mg Tablet] 10 mg PO QAM 10/24/18 Trazodone HCl 100 mg PO QHS 10/24/18 Cephalexin Monohydrate [Keflex 500 mg Capsule] 500 mg PO QID #28 capsule 10/26/18 History of Present Illness History of Present Illness: TANNER STRINGER is a 83 year old female whose history is obtained by the record as she is a poor historian. She presents with urinary tract infection and urinary retention, treatment with amoxicillin twice daily 10 days ago. Follow-up with primary care she is noted to be confused and weak prompting evaluation in the emergency room. She is found to have acute renal failure and 19 pound weight loss with poor appetite. Patient herself denies complaints she is requesting Valium. Providing incorrect dose and frequency of outpatient benzodiazepine. Hospital Course Hospital Course: She received some IV fluids and some antibiotics and her condition improved rather quickly. She was eating and drinking without difficulty. Klebsiella grew out of her urine and she will complete a course of Keflex. She was seen and evaluated by physical therapy and she did well after then they recommended home health physical therapy for her. These arrangements were made. Her labs and examination were reassuring and she was discharged in good condition. Physical therapy recommended that she use a walker, and the patient said that she had one at home that used to belong to her . Physical Exam Vital Signs: Temp Pulse Resp BP Pulse Ox 97.4 F 59 L 16 127/58 H 97 10/26/18 15:20 10/26/18 15:20 10/26/18 15:20 10/26/18 15:20 10/26/18 15:20 Intake & Output 10/25/18 10/26/18 10/27/18 06:59 06:59 06:59 Intake Total 1150 909 360 Output Total 860 1400 200 Balance 290 -491 160 Weight 70.3 kg 71.1 kg General appearance: PRESENT: no acute distress, cooperative, disheveled Respiratory exam: PRESENT: clear to auscultation paula, symmetrical, unlabored. ABSENT: accessory muscle use, chest wall tenderness, crackles, prolonged expiratory phas, rhonchi, tachypnea, wheezes Cardiovascular exam: PRESENT: RRR, +S1, +S2 Pulses: PRESENT: normal carotid pulses Vascular exam: PRESENT: normal capillary refill GI/Abdominal exam: PRESENT: normal bowel sounds, soft. ABSENT: distended, guarding, rebound, tenderness Extremities exam: ABSENT: clubbing, pedal edema Musculoskeletal exam: PRESENT: normal inspection. ABSENT: deformity Neurological exam: PRESENT: awake, oriented to person, oriented to place Psychiatric exam: PRESENT: appropriate affect, normal mood Skin exam: PRESENT: dry, warm Results Laboratory Results: 10/25/18 04:09 10/25/18 04:09 Impressions: Chest X-Ray 10/24/18 16:42 IMPRESSION: NO ACUTE RADIOGRAPHIC FINDING IN THE CHEST. Qualifiers - * PATIENT BEING DISCHARGED WITH ANY OF THE FOLLOWING DIAGNOSIS: No Acute Heart Failure - Is this a Heart Failure Patient?: No Plan Time Spent: Greater than 30 Minutes
[2018-10-26] MEDS ORDERED: CEFTRIAXONE 1 GM/D5W RTU 1 GM/50 ML RTUPB IV SCH (22:00)
--- NOTE | 2018-11-04 14:10 | Progress Note ---
Provider Note Provider Note: Re: Query Cannot further specify the type of encephalopathy
== END 2018-10-26 15:20 | disposition home health service (06) | DRG 683 ==
LOC: ER 16:26 → EH 20:18 → 4S 22:55
PROVIDERS: ADMIT Internal Medicine; ATTEND Internal Medicine
DX: N17.9 Acute kidney failure, unspecified (principal); N39.0 Urinary tract infection, site not specified; G93.40 Encephalopathy, unspecified; T42.4X5A Adverse effect of benzodiazepines, initial encounter; E78.5 Hyperlipidemia, unspecified; I10 Essential (primary) hypertension; E03.9 Hypothyroidism, unspecified; M19.90 Unspecified osteoarthritis, unspecified site; D64.9 Anemia, unspecified; R33.9 Retention of urine, unspecified; E87.5 Hyperkalemia; B96.1 Klebsiella pneumoniae [K. pneumoniae] as the cause of diseases classified elsewhere; Z85.3 Personal history of malignant neoplasm of breast; B02.9 Zoster without complications; Z79.899 Other long term (current) drug therapy
CPT/HCPCS: 36415; 71046; 80048; 80053; 81001; 82607; 82728; 82746; 82803; 82962; 83540; 83550; 83605; 84443; 85025; 85045; 85610; 87040; 87086; 87088; 87186; 93005; 93010; 96360; 96361; 99285; J0360; J0696; J1644; J3490; J7030